=== PATIENT | female | born 1985 | race Caucasian/White ===

== ENCOUNTER 2017-03-28 07:46 | Outpatient (CLI) | payer OTHER | END 2017-03-28 07:47 | disposition home or self-care (01) | LOC: BICMRI 07:46 | PROVIDERS: ATTEND Psychiatry & Neurology Neurology | DX: M47.812 Spondylosis without myelopathy or radiculopathy, cervical region (principal); M50.222 Other cervical disc displacement at C5-C6 level; K11.8 Other diseases of salivary glands | CPT/HCPCS: 72141 ==

== ENCOUNTER 2017-10-07 10:04 | Day surgery (SDC) | payer OTHER ==
--- NOTE | 2017-10-07 13:29 | ULT ---
NECK SOFT TISSUE SONOGRAM: HISTORY: Left parotid mass. FINDINGS: Sonographic evaluation of the left parotid tail shows a normal-appearing lymph node measuring up to 1 .5 cm. Immediately deep to it, a lobular well-circumscribed hypoechoic mass measures up to 1.5 cm gr eatest length and best correlates with the lesion seen on MRI brain from 11/28/15. There is a small e ccentric hyperechoic focus which has the appearance of a hilum that is somewhat vascular. IMPRESSION: The hypoechoic lesion at the left parotid tail has appearance most suggestive of a lymph node. It co rrelates with the lesion seen on MRI brain from 11/28/15. Ultrasound-guided biopsy is pending. POS: [facility]
--- NOTE | 2017-10-07 13:35 | ULT ---
SONOGRAPHIC GUIDED LEFT PAROTID MASS BIOPSY: HISTORY: Left parotid mass. FINDINGS: After explaining the procedure and answering all questions, the separately reported sonogram was perf ormed with details reported separately. Sterile technique, buffered local anesthesia, sonographic gu idance, and a posterior approach were used to carefully advance a 21-gauge biopsy needle to the level of the hypoechoic mass at the parotid tail. A total of 2 core biopsy specimens were obtained and esteban bmitted to pathology for evaluation. Postprocedure imaging shows no evidence of complication. The p atient tolerated the procedure well and was dismissed in god condition. IMPRESSION: Technically successful sonographic-guided biopsy left parotid tail mass. Pathology is pending. POS: [facility]
[2017-10-07 14:08] VITALS: BP 113/60; TEMP 97.9
[2017-10-07 14:16] VITALS: BMI 35.2
== END 2017-10-07 11:40 | disposition home or self-care (01) ==
LOC: ULT 10:04
PROVIDERS: ATTEND Specialist
PROC: 0C993ZX Drainage of Left Parotid Gland, Percutaneous Approach, Diagnostic (ICD-10-PCS; principal; 2017-10-07)
DX: K11.8 Other diseases of salivary glands (principal); H91.90 Unspecified hearing loss, unspecified ear; Z79.899 Other long term (current) drug therapy
CPT/HCPCS: 38505; 76536; 88305